=== PATIENT | female | born 1975 | race Caucasian/White ===

== ENCOUNTER 2018-11-12 01:18 | Emergency (ER) | payer BC ==
[~2018-11-12] VITALS: Ht 154.9 cm; Wt 52.2 kg
[2018-11-12 01:22] VITALS: Ht 154.9 cm; Wt 52.2 kg
[2018-11-12 03:29] VITALS: BP 123/64
== END 2018-11-12 03:28 | disposition home or self-care (01) ==
LOC: ED 01:18
DX: J20.9 Acute bronchitis, unspecified (principal)
CPT/HCPCS: J7512; J7613; J7644